=== PATIENT | female | born 1990 ===

== ENCOUNTER 2017-04-29 19:14 | Inpatient (IN) | payer MEDICAID ==
[2017-04-29 19:48] VITALS: BMI 37.9
[2017-04-29] MEDS: Lactated Ringer's 1,000 ML IV SCH (20:00)
--- NOTE | 2017-04-29 20:07 | OBADHP ---
Datetime: 04/29/2017 19:49 Admit Comment, IP Provider: Patient is a 26 year old at 40w5d RENAN 04/24/17 by LMP presents to L +D for scheduled induction of labor due to postdates. Patient is doing well, offers no complaints at this time. Endorses +FM, denies VB, LOF, CTX. Goes to [facility] for care. Last visit was yesterday. 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 Admit to unit 2. CEFM and TOCO 3. Admission labs - CBC, CMP, T+S, UA 4. LR @ 125cc/hr 5. Cervidil for cervical ripening 6. GBS negative - no abx needed at this time 7. Anesthesia for pain control prn 8. Plan d/w attending Chelsea Castanon DO PGY-1 agree with above Jabier whaley MD Pelvic Type - PN: Adequate Extremities - PN: Normal Abdomen - PN: Normal Back - PN: Normal Breast - PN: Normal Lungs - PN: Normal Heart - PN: Normal Thyroid - PN: Normal Neurologic - PN: Normal HEENT - PN: Normal General - PN: Normal Comments, ACOG Physical Exam: VS: BP 137/83 HR 112 Gen: AAOx3 Abd: Soft, gravid Ext: No clubbing, cyanosis, edema SVE: EFM: 140, TOCO: q3-4min Last US 04/17/17: Single IUP, cephalic, posterior placenta, CLIFFORD 9.9cm, EFW 7lbs 8oz IP Hx Assessment: The History has been Reviewed and is Current Vital Signs Provider: Reviewed; Within Normal Limits IP Chief Complaint: Scheduled induction of labor Genitourinary Exam: Normal DTRs - PN: Normal IP Adm Impression: Term, intrauterine IP Admit Plan: Admit to unit
[2017-04-29 20:52] LABS: BASO % 0.1 % (0.0-2.0); EOS # 0.1 K/uL (0.0-0.7); EOS % 0.4 % (0.0-4.0); HEMATOCRIT 41.9 % (34.0-47.0); LYMPH # 2.7 K/uL (1.0-4.3); LYMPH % 17.5 % (20.0-40.0); MEAN CELL VOLUME 88.2 fL (81.0-99.0); MEAN CORPUSCULAR HEMOGLOBIN 29.1 pg (27.0-31.0); MEAN PLATELET VOLUME 10.4 fL (7.2-11.7); MONO # 0.8 K/uL (0.0-0.8); MONO % 5.1 % (0.0-10.0); RED CELL DISTRIBUTION WIDTH 15.7 % (11.5-14.5); WHITE BLOOD COUNT 15.2 K/uL (4.8-10.8)
[2017-04-29 21:04] LABS: ALKALINE PHOSPHATASE 134 U/L (38-126); ALT/SGPT 30 U/L (9-52); AST/SGOT 14 U/L (14-36); BILIRUBIN,TOTAL 0.5 mg/dL (0.2-1.3); BLOOD UREA NITROGEN 10 mg/dL (7-17); CALCIUM 8.6 mg/dl (8.6-10.4); CARBON DIOXIDE 17 mmol/L (22-30); CHLORIDE 104 mmol/L (98-107); GFR AFRICAN-AMERICAN > 60; GLUCOSE,RANDOM 77 mg/dL (65-105); POTASSIUM 3.5 mmol/L (3.6-5.2); SODIUM 133 mmol/L (132-148); TOTAL PROTEIN 7.3 g/dL (6.3-8.3)
[2017-04-29 21:05] LABS: ALB/GLOB RATIO 0.9 (1.0-2.1); RBC URINE 24 /hpf (0-3); URINE BILIRUBIN NEGATIVE (NEGATIVE); URINE BLOOD 2+ (NEGATIVE); URINE COLOR Yellow (YELLOW); URINE GLUCOSE (UA) NORMAL (Normal); URINE KETONE NEGATIVE (NEGATIVE); URINE LEUKOCYTE ESTERASE 1+ Leu/uL (Negative); URINE PROTEIN NEGATIVE (NEGATIVE); URINE UROBILINOGEN NORMAL mg/dL (0.2-1.0); WBC URINE 16 /hpf (0-5)
[2017-04-29 21:13] LABS: URINE BACTERIA OCC (<OCC)
[2017-04-30] MEDS: Lactated Ringer's 1,000 ML IV SCH (03:30)
[2017-04-30] MEDS ORDERED: Bupivacaine 0.125%/FentaNYL 200 ML EPI ONE (08:16)
[2017-04-30] MEDS ORDERED: Oxytocin 30 UNIT 30 UNITS/500 ML BAG IV PRN (09:48)
[2017-04-30] MEDS ORDERED: Oxytocin 30 UNIT 30 UNITS/500 ML BAG IV ONE (09:49)
--- NOTE | 2017-04-30 09:50 | OBPN ---
Datetime: 04/30/2017 09:43 IP Progress Impression: Normal progression of labor IP Procedures: Sterile Vag Exam IP Progress Plan: Continue present management; Augmentation; Anticipate Vaginal Delivery Membranes, Provider: Intact Contraction Comments Provider: 2-5 FHR - Baseline A Provider: 135 Gestation - Est Wks by US: 40w 6d Presentation-Admit: Vertex IP Progress Note Comment: Patient received in LDR#4, S/P epidural; no pain of contractions. (+) AFM Cervical exam: as above. FHR noted for occasional variable decelerations with early decelerations. (+) accelerations with scalp stimulation. Assessment: 26 y.o. P0, 40w 6d, in active labor. Category 1 tracing with scalp stimulation. GBS negative. Plan: 1) Pitocin 2) Anticiate vaginal delivery NICHD Accel Fetus A IP Provider: 15X15 NICHD Variability Prov Fetus A: Moderate 6-25bpm Dilatation, Provider: 6 Effacement, Provider: 90 Station, Provider: -3 NICHD Decel Fetus A IP Provider: Early; Variable Datetime: 04/29/2017 19:49 Vital Signs Provider: Reviewed; Within Normal Limits
[2017-04-30] MEDS ORDERED: Sodium Chloride 0.9% 500 ML IV ONE (14:18)
[2017-04-30] MEDS ORDERED: cefOXitin IV 2 gm in Dextrose 2 GM/50 ML BAG IVPB ONE ×2 (16:22→16:23)
[2017-04-30] MEDS ORDERED: Sodium Citrate/Citric Acid 15 ml Sol PO ONE (16:22)
[2017-04-30] MEDS ORDERED: Oxytocin 10 Units/ml Inj ONE (16:29)
[2017-04-30] MEDS ORDERED: Oxytocin 20 units in LR 2,000 ML IV ONE (16:32)
[2017-04-30] MEDS ORDERED: Lactated Ringer's 1,000 ML IV ONE (16:36)
--- NOTE | 2017-04-30 17:00 | OBPN ---
Datetime: 04/30/2017 16:58 IP Progress Impression: Arrest of dilatation/descent IP Progress Plan: Deliver- Section FHR - Baseline A Provider: 150 Gestation - Est Wks by US: 40w 6d Presentation-Admit: Vertex NICHD Accel Fetus A IP Provider: 15X15 FHR Category Provider Fetus A: Category I NICHD Variability Prov Fetus A: Moderate 6-25bpm NICHD Decel Fetus A IP Provider: Early Datetime: 04/30/2017 15:52 Membranes, Provider: Intact Contraction Comments Provider: 1-2 duncan IP Progress Note Comment: Notified by R.N: probable SROM at 1300 Patient has been pushing with the coaching of her labor nurse. Assessment: 26 y.o. P0, at end of Stage 1 of labor. After cervical exam, deceleration noted to 110 bpm x 3 minutes. FHR responded to right lateral position, oxygen by mask. IV bolus of normal saline infusing - this secondary to low urine output. FHR recovered to 130 bpm; no Category 1 saul ng with occasional early decelerations. Clinically stable. Plan: 1) Observe 2) Anticpate resuming pushing in 30 to 60 minutes. Dilatation, Provider: 10 Effacement, Provider: 100 Station, Provider: 1
[2017-04-30] MEDS ORDERED: Morphine 1 mg/ml preservative-free Inj(Duramorph) ONE (17:03)
[2017-04-30] MEDS ORDERED: Ketamine 50 mg/ml Inj (10 ml) ONE (17:57)
[2017-04-30] MEDS ORDERED: Midazolam 2 MG/2 ML VIAL ONE (17:57)
[2017-04-30] MEDS ORDERED: Naloxone 0.4 mg/ml Inj (Adult) IVP PRN (19:25)
[2017-04-30] MEDS ORDERED: DiphenhydrAMINE 50 mg/ml Inj IVP PRN (19:25)
[2017-04-30] MEDS ORDERED: Oxycodone/Acetaminophen 5/325 mg Tab PO PRN (21:53)
--- NOTE | 2017-04-30 21:54 | OBDS ---
DELIVERY PERSONNEL Delivery Doctor: Ramon Grey MD Scrub Nurse: Neela Mcgarry Global Ceo: Silvia Hudson RN Anesthesiologist: Ramon Arnold MD Resident: Mariusz Castanon MATERNAL INFORMATION Delivery Anesthesia: Epidural; Spinal Medications in Delivery: pitocin 20mg to pitocin iv bag Estimated Blood Loss (ml): 800 Placenta Cultured: No Maternal Complications: None Other Maternal Complications: n/a RN Comments: see flow sheet Provider Comments: Primary LTCS with delivery of live male nfant, direct OP position, weight 7lb 4oz , 's 9/9; thick meconium liquor. Cord ph 7.14. There was a 5 cm extension on the right side, i nferior aspect of the lower uterine segment. 3 vessel umbilical cord; grossly normal placenta. Routine closure of uterus, with re-approximation of all tissues. Hemostasis was assured throughout the procedure. Skin was reapproximated with surgical clips Patient tolerated procedure well; back to R#4 in stable. had been transferred to [facility] nurse - also in stable condition. LABOR SUMMARY EDC: 04/24/2017 00:00 No. Babies in Womb: 1 Attempted: No Labor Anesthesia: Epidural LABOR INFORMATION Reason for Induction: Postterm Onset of Labor: 04/30/2017 07:53 Complete Dilatation: 04/30/2017 14:00 Cervical Ripening Agents: Cervidil Oxytocin: Augmentation Group B Beta Strep: Negative (Annotations: 03/20/2017) Antibiotics # of Doses: 1 Antibiotics Time of Last Dose: 1630 Steroids Given: None Reason Steroids Not Administered: Not Applicable MEMBRANES Membranes Rupture Method: Spontaneous Rupture of Membranes: 04/30/2017 13:00 Length of Rupture (hrs): 4.80 Amniotic Fluid Color: Clear Amniotic Fluid Amount: Small Amniotic Fluid Odor: None STAGES OF LABOR Stage 1 hrs: 6 Stage 1 min: 7 Stage 2 hrs: 3 Stage 2 min: 48 Stage 3 hrs: 0 Stage 3 min: 1 Total Time in Labor hrs: 9 Total Time in Labor min: 56 CSECTION DELIVERY Primary Indication: Arrest of Descent CSection Urgency: Non Elective CSection Incidence: Primary Labor: Labor Elective: Nonelective CSection Incision: Lower Uterine Transverse Uterine Closure: Double-layer closure BABY A INFORMATION Delivery Date/Time: 04/30/2017 17:48 Method of Delivery: Born in Route : No : N/A Forceps: N/A Vacuum Extraction: N/A Shoulder Dystocia : No SHOULDER DYSTOCIA BABY A Infant Delivery Date/Time: 04/30/2017 17:48 PRESENTATION/POSITION BABY A Presentation: Cephalic Cephalic Presentation: Vertex Vertex Position: direct op Breech Presentation: N/A PLACENTA INFORMATION BABY A Placenta Delivery Time : 04/30/2017 17:49 Placenta Method of Delivery: Manual Removal Placenta Status: Delivered SCORES BABY A Heart Rate 1 min: >100 bpm Resp Effort 1 min: Good Cry Reflex Irritability 1 min: Cough or Sneeze or Pulls Away Muscle Tone 1 min: Active Motion Color 1 min: Body Carmen, Extremities Blue Resuscitation Effort 1 min: Tactile Stimulation SCORE 1 MIN: 9 Heart Rate 5 min: >100 bpm Resp Effort 5 min: Good Cry Reflex Irritability 5 min: Cough or Sneeze or Pulls Away Muscle Tone 5 min: Active Motion Color 5 min: Body Carmen, Extremities Blue Resuscitation Effort 5 min: N/A SCORE 5 MIN: 9 INFORMATION BABY A Gestational Age at Delivery: 40.6 Gestational Status: Post-term Outcome : Liveborn Condition : Fair Infant Sex: Male IDENTIFICATION/MEDS BABY A ID Band Number: [id number] ID Band Location: Left Leg; Left Arm Sensor Applied: Yes Sensor Number: [id number] Sensor Location : Cord Clamp Vitamin K Given : Aquamephyton 1 mg IM; Right Thigh Erythromycin Given: Given Both Eyes WEIGHT/LENGTH BABY A Birthweight (gms): 3230 Weight (lb): 7 Weight (oz): 2 Infant Length Inches: 21.00 Length cms: 53.3 CORD INFORMATION BABY A No. Cord Vessels: 3 Nuchal Cord : N/A Nuchal Cord Other: n/a True Knot: n/a Infant Cord pH Baby Arterial: 7.14 Cord Blood Taken: Yes Suction: Mouth; Nose ASSESSMENT BABY A Complications: Meconium Physical Findings at Delivery: Caput Succedaneum Infant Respirations: Appears Normal Supervisor Fur Dressing/ALS Called : No Infant Care By: johnna carpenter RN/ Dr. nicholas Transferred To: Remains with Mother
--- NOTE | 2017-04-30 22:05 | PCM.SURG1 ---
Surgeon's Initial Post Op Note - Surgeon's Notes Surgeon: Sarahi Grey MD Customs And Immigration Officer: John Lucio MD; 2nd Assist: Chelsea Castanon DO, PGY-1 Type of Anesthesia: Spinal Anesthesia Administered By: Primitivo Arnold MD Pre-Operative Diagnosis: 40 weeks 5 days gestation. Failed IOL - arrest of descent. Operative Findings: Live male infant, direct OP position, Weight 7lb 4oz; Apgars ' 9/9. Thick meconium liquor. Cord pH 7.14; base excess -12. Approx 5cm extension of the inferior aspect of the uterine incision on the right. Normal uterus; normal fallopian tubes and ovaries, bilaterally. Post-Operative Diagnosis: Same Operation Performed: Transverse lower uterine segment section Specimen/Specimens Removed: None Estimated Blood Loss: EBL {In ML}: 800 (U.O. 300 mL) Blood Products Given: N/A Drains Used: No Drains Post-Op Condition: Good Date of Surgery/Procedure: 04/30/17 Time of Surgery/Procedure: 19:05
[2017-04-30] MEDS ORDERED: cefOXitin IV 2 gm in Dextrose 2 GM/50 ML BAG IVPB SCH (22:15)
--- NOTE | 2017-05-01 04:33 | OP ---
PROCEDURE DATE: 04/30/2017 SURGEON: Sarahi Grey MD OPERATIONS SPECIALISTS: John Lucio MD SECOND VENDING MACHINE TECHNICIAN: Chelsea Castanon DO, PGY1 ANESTHESIOLOGIST: Primitivo Arnold MD TYPE OF ANESTHESIA: Spinal. PREOPERATIVE DIAGNOSIS: 40 weeks 5 days' gestation, failed induction of labor with descent. POSTOPERATIVE DIAGNOSIS: 40 weeks 5 days gestation, failed induction of labor with descent. OPERATIVE FINDINGS: Live male infant with direct occiput posterior position, weight 7 pounds 4 ounces, Apgars of 9 and 9 at one and five minutes respectively. Thick meconium liquor was noted. Cord pH was 7.14 with a base excess of -12. There was an approximate 5 cm extension of the inferior aspect of the uterine segment on the right side. Normal uterus and normal fallopian tubes and ovaries bilaterally. OPERATION PERFORMED: Transverse lower uterine segment cesarian section. SPECIMENS: None. ESTIMATED BLOOD LOSS: 800 mL. URINE OUTPUT: 300 mL. INTRAVENOUS FLUIDS: *------* BLOOD PRODUCTS GIVEN: None. COMPLICATIONS: None. DESCRIPTION OF PROCEDURE: The patient was taken to the operating room after having obtained informed consent for the anticipated procedure. This included the discussion of possible risks and complications including but not limited to infection requiring continued antibiotics, hemorrhage requiring blood transfusion, repair of any damage to internal organs and possible hysterectomy. The patient offered no questions and consents were signed, dated, witnessed and placed in the chart. The patient had had a Atkins indwelling catheter inserted after receiving epidural anesthesia, and the abdomen was subsequently prepped. The patient was transferred to the main operating room. In the operating room, she was placed in the operating room table in a sitting position. Spinal anesthesia was administered without incident. The patient was immediately re-positioned to supine position, and the abdomen was prepped and subsequently draped in the usual sterile fashion. After assuring an adequate level of anesthesia, using a scalpel, a Pfannenstiel incision was made on the skin. The incision was carried down through the subcutaneous tissue using the Bovie electrocautery. The fascia was identified. It was nicked in the midline, and the incision was extended bilaterally also using the Bovie electrocautery. The fascia was dissected off the rectus muscle, and the rectus muscle was in the midline using two Angie clamps. The abdominal cavity was entered via sharp dissection. The vesicouterine reflection was identified and a bladder flap was created. A transverse incision was made on the lower uterine segment. Immediately upon entering the endometrial cavity, thick meconium liquor was noted. Atraumatic delivery of the infant then ensued without difficulty. Once on the operative field, the 's mouth and nose were bulb suctioned and the umbilical cord was doubly clamped and cut. The was handed off the operative field to the brake repairer railroad in attendance. A segment of the cord was obtained for cord pH analysis, results as above. The placenta was then delivered manually. It was grossly intact with three vessels present in the cord. The uterus was exteriorized for closure. It was noted to be somewhat boggy, and an additional 20 units for a total of 40 units of Pitocin was added. Uterus became firm. Closure of the uterine segment then ensued in two layers using 0 Vicryl. The first layer in a running interlocking fashion and the second layer was in a vertical imbricating fashion. The 5-cm extension on the right was also repaired using 0 Vicryl in two layers. The first layer was in a running interlocking fashion, and the second layer was in a vertical imbricating manner. Additional sutures were placed using 2-0 Monocryl in a [id number] stitch to assure hemostasis along the uterus. Attention was then directed to the posterior aspect of the uterus. Copious irrigation was performed. Findings as above. The uterine incision was then inspected again for hemostasis and Surgicel was placed along the uterine incision. The bladder flap was reapproximated using 2-0 chromic in a running fashion. The uterus was returned to the abdominal cavity and the paracolic gutters were cleared of all debris. Adequate hemostasis was assured. The parietal peritoneum was reapproximated in the midline using 2-0 chromic in a running fashion. The rectus muscles were reapproximated in the midline using 2-0 chromic in a running fashion. The fascia was reapproximated using 0-Vicryl in a running fashion in two halves. The subcutaneous tissue was reapproximated using 0 plain catgut in a running fashion, and the skin was reapproximated using surgical clips. Dressing was applied to the incision, and the patient as re-positioned in a frog-leg manner. Uterine exploration was performed and the uterus was evacuated of all clots and debris. A pressure dressing was then applied. The patient was subsequently transferred back to [facility] in stable condition. The had been transferred to [facility] in stable condition. Dr. Lucio was present throughout the entire procedure from beginning to end. His expertise was necessary for: 1. Adequate visualization of the field at all times. 2. The safe and atraumatic delivery of the infant as described above. 3. Assuring adequate hemostasis throughout the procedure. Sarahi MD Que
[2017-05-01 08:40] LABS: HEMATOCRIT 35.9 % (34.0-47.0); MEAN CELL VOLUME 88.8 fL (81.0-99.0); MEAN CORPUSCULAR HGB CONC 33.8 g/dL (33.0-37.0); RED CELL DISTRIBUTION WIDTH 15.6 % (11.5-14.5); WHITE BLOOD COUNT 15.6 K/uL (4.8-10.8)
[2017-05-01] MEDS: Lactated Ringer's 1,000 ML IV SCH (08:42)
[2017-05-01] MEDS: Prenatal Multivit/Folic Acid/Iron Tab PO SCH (09:41)
[2017-05-01] MEDS: Simethicone 80 mg Chewtab PO SCH ×4 (09:41→22:37)
--- NOTE | 2017-05-01 11:25 | OBPPN ---
Datetime: 05/01/2017 11:20 PP Pain Prov: Within normal limits PP Nausea Prov: Denies PP Flatus Prov: No PP Abdomen/Uterus Prov: Normal PP Lochia Prov: Normal PP Extremities Prov: Normal PP Comments Phys Exam Prov: fudus bekow umblicus ext mild edema,no calf ten PP Impression Prov: Normal progression PP Plan Prov: Continue present management PP Progress Note Prov: pt wa seen at bed chito, pain under control,no n/v, tolerating deit,waiting to void ,min lochia, flatus + pod#1 s/p c/s cbc rg deit cont post op care cont pain management Vital Signs Provider PP: Reviewed; Within Normal Limits
[2017-05-02 08:15] LABS: BASO % 0.1 % (0.0-2.0); EOS % 0.3 % (0.0-4.0); HEMATOCRIT 33.5 % (34.0-47.0); LYMPH # 1.7 K/uL (1.0-4.3); MEAN CELL VOLUME 88.4 fL (81.0-99.0); MEAN CORPUSCULAR HEMOGLOBIN 29.8 pg (27.0-31.0); MEAN CORPUSCULAR HGB CONC 33.7 g/dL (33.0-37.0); MEAN PLATELET VOLUME 9.7 fL (7.2-11.7); MONO # 0.5 K/uL (0.0-0.8); MONO % 3.3 % (0.0-10.0); RED CELL DISTRIBUTION WIDTH 15.3 % (11.5-14.5); WHITE BLOOD COUNT 15.1 K/uL (4.8-10.8)
--- NOTE | 2017-05-02 08:53 | OBPPN ---
Datetime: 05/02/2017 07:18 PP Pain Prov: Within normal limits PP Nausea Prov: Denies PP Flatus Prov: Yes PP BM Prov: Yes PP Abdomen/Uterus Prov: Normal PP Lochia Prov: Normal PP Extremities Prov: Normal PP Comments Phys Exam Prov: Fundus firm below umbilicus Incision c/d/i with savanna PP Impression Prov: Normal progression PP Plan Prov: Continue present management PP Progress Note Prov: Patient seen and examined at bedside. Per nursing no acute events overnight. Patient is doing well, having pain at incision site. Lochia is mild. Ambulating and tolerating diet. Passing flatus and BM. Urinating without difficulty. Breast and bottle feeding. Denies headaches, diz ziness, cp, palpiaions, sob, urinary symptoms. VS: 121/72 101 98.9 Gen: AAOx3 CV: RRR Lungs: CTA B/L Abd: Soft, appropriately tender, fundus firm below umbilicus, incision c/d/i with savanna, +abd bi nder Ext: Mild edema, no calf tenderness Labs: 15.2>13.8/41.9<207 15.6>12.1/35.9<159 AB positive Rubella immune A/P: 26 year old at 40w6d s/p PLTCD 2/2 failure to descent POD#2 1. stable, afebrile 2. Pain control - percocet and motrin prn 3. Encourage ambulation and hydration; ISS use 4. Encourage breast feeding 5. Continue routine care 6. Male - declined circ 7. Anticipate d/c home tomorrow 8. Plan d/w attending Chelsea Castanon DO PGY-1 dr nam agrees with above Vital Signs Provider PP: Reviewed
[2017-05-02] MEDS: Simethicone 80 mg Chewtab PO SCH ×4 (09:08→21:18)
[2017-05-02] MEDS: Prenatal Multivit/Folic Acid/Iron Tab PO SCH (09:09)
[2017-05-02] MEDS: Oxycodone/Acetaminophen 5/325 mg Tab PO PRN (16:55)
[2017-05-03 07:47] VITALS: O2SAT 100
[2017-05-03] MEDS: Oxycodone/Acetaminophen 5/325 mg Tab PO PRN (08:09)
[2017-05-03] MEDS: Simethicone 80 mg Chewtab PO SCH (09:43)
[2017-05-03] MEDS: Prenatal Multivit/Folic Acid/Iron Tab PO SCH (09:43)
[2017-05-03] MEDS ORDERED: Influenza Vaccine 60 mcg/0.5 mL SYR (4YR UP) IM ONE (10:00)
[2017-05-03 16:38] VITALS: BP 136/86; PULSE 113; RESP 18; TEMP 97
--- NOTE | 2017-05-03 19:54 | OBPPN ---
Datetime: 05/03/2017 08:55 PP Pain Prov: Within normal limits PP Nausea Prov: Denies PP Flatus Prov: Yes PP Impression Prov: Normal progression PP Plan Prov: Continue present management; Discharge PP Progress Note Prov: Patient seen and examined at bedside. Per nursing no acute events overnight. Patient is doing well, pain is controlled. Lochia mild. Patient is ambulating and tolerating diet. Ur inating without difficulty. Passing flatus and BM. Breast and bottle feeding. Denies headaches, dizzi ness, cp, palpitations, sob, urinary symptoms. VS: 123/74 122 98.5 Gen: AAOx3 CV: Tachycardic, regular rhythm Lungs: CTA B/L Abd: Soft, fundus firm below umbilicus, incision c/d/i with savanna Ext: Mild edema; No clubbing, cyanosis, calf tenderness Labs: 15.2>13.8/41.9<207 15.6>12.1/35.9<159 AB positive Rubella immune A/P: 26 year old at 40w6d s/p PLTCD 2/2 failure of descent POD#3 1. Stable, afebrile 2. Pain control - percocet and motrin prn 3. Encourage ambulation and hydration 4. Encourage breast feeding 5. Continue routine care 6. Anticipate d/c home today - pelvic rest x 6 weeks, f/u with clinic in 1 week for staple removal 7. Plan d/w attending Chelsea Castanon DO PGY-1 Pt seen and examined with resident and agrees with the above. Vital Signs Provider PP: Reviewed
--- NOTE | 2017-05-03 19:54 | OBDCSUM ---
Datetime: 05/03/2017 08:30 Discharged to, Provider: Home Follow up at, Provider: [facility] Disch Instr Activity: Normal activity; May Shower Disch Instr Diet: Regular Discharge Diet restrict Prov: none Discharge Instructions, Provider: Routine instructions given Discharge Diagnosis, Provider: Term Delivered Discharge Time: 05/03/2017 10:00 Follow up in weeks, Provider: one week fri05/09/17 Disch Referrals: None Contraception discussed, Prov: Yes Disch Activity Restrictions: No exercising; No lifting; No sexual activity; Nothing in vagina - Inte rcourse, tampons, douche Discharge Comment, Provider: s/p Primary Section, Clinically Stable Discharge Diagnosis Prov Other: s/p Primary Section, Clinically Stable
== END 2017-05-03 12:30 | disposition home or self-care (01) | DRG 371 ==
LOC: C.EROB 19:14 → C.4D 19:51 → C.4M 04-30 22:00
PROVIDERS: ADMIT Obstetrics & Gynecology; ATTEND Obstetrics & Gynecology
PROC: 3E0P7VZ Introduction of Hormone into Female Reproductive, Via Natural or Artificial Opening (ICD-10-PCS; 2017-04-29)
PROC: 10D00Z1 Extraction of Products of Conception, Low, Open Approach (ICD-10-PCS; principal; 2017-04-30)
DX: O48.0 Post-term pregnancy (principal); O61.9 Failed induction of labor, unspecified; O64.0XX0 Obstructed labor due to incomplete rotation of fetal head, not applicable or unspecified; O62.1 Secondary uterine inertia; O76 Abnormality in fetal heart rate and rhythm complicating labor and delivery; Z3A.40 40 weeks gestation of pregnancy; Z37.0 Single live birth

== ENCOUNTER 2018-04-22 07:25 | Inpatient (IN) | payer MEDICAID, OTHER ==
[2018-04-22] MEDS ORDERED: Lactated Ringer's 1,000 ML IV ONE (07:52)
[2018-04-22] MEDS ORDERED: Sodium Citrate/Citric Acid 15 ml Sol PO ONE (07:52)
[2018-04-22] MEDS ORDERED: ceFAZolin 2 GM in Sodium Chloride 0.9% 100 ML IVPB ONE (07:52)
[2018-04-22 09:23] LABS: BASO % 0.3 % (0.0-2.0); EOS # 0.1 K/uL (0.0-0.7); EOS % 0.7 % (0.0-4.0); HEMOGLOBIN 12.6 g/dL (11.0-16.0); LYMPH # 2.7 K/uL (1.0-4.3); LYMPH % 28.2 % (20.0-40.0); MEAN CELL VOLUME 87.4 fL (81.0-99.0); MEAN CORPUSCULAR HEMOGLOBIN 29.5 pg (27.0-31.0); MEAN CORPUSCULAR HGB CONC 33.7 g/dL (33.0-37.0); MONO # 0.4 K/uL (0.0-0.8); MONO % 4.5 % (0.0-10.0); NEUT # 6.4 K/uL (1.8-7.0); NEUT % 66.3 % (50.0-75.0); RBC 4.27 Mil/uL (3.80-5.20); RED CELL DISTRIBUTION WIDTH 15.3 % (11.5-14.5); WHITE BLOOD COUNT 9.6 K/uL (4.8-10.8)
[2018-04-22 09:59] LABS: SQUAMOUS EPITHIAL 67 /hpf (0-5); URINE BACTERIA MANY (<OCC); URINE BILIRUBIN NEGATIVE (NEGATIVE); URINE BLOOD NEGATIVE (NEGATIVE); URINE CLARITY Hazy (Clear); URINE COLOR Yellow (YELLOW); URINE GLUCOSE (UA) NORMAL (Normal); URINE LEUKOCYTE ESTERASE 2+ Leu/uL (Negative); URINE PROTEIN NEGATIVE (NEGATIVE); URINE UROBILINOGEN NORMAL mg/dL (0.2-1.0)
[2018-04-22] MEDS ORDERED: Oxytocin 20 units in LR 2,000 ML IV ONE (10:59)
[2018-04-22] MEDS ORDERED: Sodium Citrate/Citric Acid 15 ml Sol ONE ×2 (11:35→12:00)
[2018-04-22] MEDS ORDERED: ceFAZolin 1 gm FROZEN Premix 0 GM/0 ML ML IVPB ONE (11:59)
[2018-04-22] MEDS: Lactated Ringer's 1,000 ML IV SCH ×2 (12:58→19:13)
[2018-04-22] MEDS ORDERED: ePHEDrine 50 mg/ml Inj ONE (13:52)
[2018-04-22] MEDS ORDERED: Oxytocin 10 Units/ml Inj ONE (14:15)
[2018-04-22] MEDS ORDERED: OXYTOCIN IV ONE (15:33)
[2018-04-22] MEDS ORDERED: Oxycodone/Acetaminophen 5/325 mg Tab PO PRN ×2 (15:33→15:39)
[2018-04-22] MEDS: Simethicone 80 mg Chewtab PO SCH ×2 (19:08→22:30)
--- NOTE | 2018-04-23 06:10 | OP ---
PROCEDURE DATE: 04/22/2018 PREOPERATIVE DIAGNOSIS: A 27-year-old 2, para 1 at 39 weeks with repeat scheduled section. POSTOPERATIVE DIAGNOSIS: A 27-year-old 2, para 1 at 39 weeks with repeat scheduled section. SURGEON: Terence Hernandez MD STRAIGHTENING MACHINE OPERATOR: John Lucio MD. ANESTHESIA: Spinal anesthesia. ANESTHESIOLOGIST: Dr. Reid. COMPLICATION: None. PROCEDURE PERFORMED: Repeat section, bilateral salpingectomy. ESTIMATED BLOOD LOSS: 900 mL. DESCRIPTION OF PROCEDURE: After informed consent was obtained, the patient was brought to the operating room, placed on the table, where spinal anesthesia was given. Once the anesthesia was given, the patient was prepped and draped in normal sterile fashion. At the site of the previous skin incision, an incision was made with a knife, the subcutaneous cut with a Bovie. The fascia was excised on both sides using curved Kaufman scissors. The fascia was from the site of the umbilicus and then at the site of the pubic bone. Rectus muscle was lifted up with two Allis scissors and was cut with a knife. There was adhesion of the omentum which was taken out with ____ Bladder blade was placed. Bladder flap was created. Lower uterine segment incision was made with a knife, it was extended on both sides using curved Kaufman scissors. Baby was delivered in ROT position. The head was The baby was handed to the awaiting intensive care unit registered nurse. Placenta delivered manually and sent to Pathology. The uterus was exteriorized and cleared of all clots and debris. The uterine incision was closed using #1 Vicryl in running interlocking fashion. Second layer was closed with the same stitch. Bilateral tubal ligation was done using modified Audra technique. of all the clots and debris, uterus was returned back to the abdominal cavity. After that, gutters were cleared of all the clots and debris. The peritoneum was closed using 2-0 Vicryl in running interlocking fashion. The muscle was closed using 2-0 Vicryl in running interlocking fashion. The fascia was closed using #1 Vicryl in running interlocking fashion. Skin was closed using savanna. The patient tolerated the procedure well. Lap, sponge, and instrument count were correct x2. Terence Hernandez MD [facility] # [id number]
[2018-04-23 08:23] LABS: HEMOGLOBIN 12.8 g/dL (11.0-16.0); MEAN CELL VOLUME 86.8 fL (81.0-99.0); MEAN CORPUSCULAR HEMOGLOBIN 29.6 pg (27.0-31.0); MEAN CORPUSCULAR HGB CONC 34.1 g/dL (33.0-37.0); MEAN PLATELET VOLUME 10.2 fL (7.2-11.7); RBC 4.33 Mil/uL (3.80-5.20); RED CELL DISTRIBUTION WIDTH 15.2 % (11.5-14.5); WHITE BLOOD COUNT 12.9 K/uL (4.8-10.8)
[2018-04-23] MEDS: Simethicone 80 mg Chewtab PO SCH ×4 (09:44→22:45)
[2018-04-23] MEDS: Prenatal Multivit/Folic Acid/Iron Tab PO SCH (09:44)
--- NOTE | 2018-04-23 10:09 | OBPPN ---
Datetime: 04/23/2018 09:26 PP Pain Prov: Within normal limits PP Nausea Prov: Denies PP Flatus Prov: Yes PP BM Prov: Yes PP Breasts Prov: Normal PP Heart Prov: Normal PP Lungs Prov: Normal PP Abdomen/Uterus Prov: Normal PP Lochia Prov: Normal PP Vulva/Perineum Prov: Normal PP CVA Tenderness Prov: Normal PP Extremities Prov: Normal PP C/S Incision Prov: Normal PP Progress Prov: Normal PP Impression Prov: Normal progression PP Plan Prov: Continue present management PP Progress Note Prov: 27 y o female now at 39.1 weeks s/p scheduled repeat C/s POD#1. Pt seen and examined at bedside. Denies any acute complaints. Reports pain well controlled. Able to t olerate liquid diet without nausea/vomiting. Admits to passing flatus, having bowel movement, voiding well without concerns. Observed at bedside without concerns. Denies headache, dizzines s, fever, chills, chest pain, sob, n/v/d/c, urinary complaints, or other symptoms. Exam: VS 106/65, HR 100, T 98.6 Gen: WDWN female, NAD HEENT: NCAT, PERRLA, EOMI Neck: supple, no JVD Heart: normal s1/s2, no m/r/g Lungs: CTA b/l, no wheezes rales or rhonchi Abd: soft, non-distended, mild tenderness to palpation at surgical site, normal bowel sounds x4 Exts: no c/c/e Neuro: AAOx3, no gross deficits Skin: surgical site c/d/i A/P: s/p scheduled repeat C/s POD#1. WBC 12.9, pt afebrile, continue to monitor Post-op H/H 12.8/37.6 Continue with pain management Encourage ambulation, and plenty of PO fluids D/c planning for POD#[address] Grey, attending physician. Tenzin Mcadams DO PGY-1 Attending Note: Patient seen and evaluated with a Resident. Sitting up in chair at this time; present. Yadira astfeeding. Amublating and voiding without difficulty. Denies N/V. (+) flatus (+) BM. I agree with t he above as documented with the additional clarification: S/P C/S # 2 with bilateral salpingectomy fo r permanent sterilization. I agree with the assessment and plan. IP PP Procedures: None Vital Signs Provider PP: Reviewed; Within Normal Limits
[2018-04-23] MEDS: guaiFENesin 200 mg/10 ml Syrup UD PO PRN (22:41)
[2018-04-24] MEDS: Simethicone 80 mg Chewtab PO SCH ×4 (09:45→23:22)
[2018-04-24] MEDS: Prenatal Multivit/Folic Acid/Iron Tab PO SCH (09:45)
--- NOTE | 2018-04-24 10:57 | OBPPN ---
Datetime: 04/24/2018 08:15 PP Pain Prov: Within normal limits PP Nausea Prov: Denies PP Flatus Prov: Yes PP BM Prov: Yes PP Heart Prov: Normal PP Lungs Prov: Normal PP Abdomen/Uterus Prov: Normal PP Lochia Prov: Normal PP Vulva/Perineum Prov: Not Done PP Extremities Prov: Normal PP C/S Incision Prov: Normal PP Comments Phys Exam Prov: Abd: soft, +bowel sounds, appropriately tender s/p , incision i s clean, dry and intact. Abdominal binder in place, fundus is firm and at the umbilicus. PP Impression Prov: Normal progression PP Plan Prov: Continue present management PP Progress Note Prov: Patient was seen and examined at bedside. Patient is doing well and has no ac [place] complaints. Patient's pain is well-controlled. Patient admits to very mild lochia. Patient is to lerating diet and liquid without any issues. Patient admits to voiding without difficulties, passing flatus, having a bowel movment. Patient denies fever, chills, nausea, vomiting, chest pain, palpitati ons, shortness of breath, dizziness, calf tenderness or headache. Patient is breast feeding. VS 105/65, HR: 110, T: 99.0, RR: 20 PE: Gen: NAD, well-appearing Heart: RRR, normal S1, S2 Lungs: CTA b/l, no wheezes rales or rhonchi Abd: soft, +bowel sounds, appropriately tender s/p , incision is clean, dry and intact. A bdominal binder in place, fundus is firm and at the umbilicus. Exts: No cyanosis, no clubbing and no edema Labs: 9.6>12.6/37.3<200, 12.9>12.8/37.6<180 AB+, Rubella immune A/P: Patient is a 27 year old s/p scheduled repeat C/s POD#2. 1. Afebrile 2. H/H is stable 3. Pain is well-controlled 4. Continue to encourage breast feeding 5. Continue to encourage ambulation and hydration 6. Plans for D/C on POD#[address] Will discuss plans [address] Dr[address] Chaparrita Simms, , PGY 2 patient seen and examined alongside residnet team patient is s/p repeat Cs, stable post op course, incision c/d/i, counseled onwound hygeine morning labs reviewed, will repeat to assess if any change in h/h countinue post care Vital Signs Provider PP: Reviewed
[2018-04-24] MEDS: guaiFENesin 200 mg/10 ml Syrup UD PO PRN (18:25)
[2018-04-25] MEDS ORDERED: Oxycodone/Acetaminophen 5/325 mg Tab PO PRN (09:01)
[2018-04-25 09:17] VITALS: BP 121/85; PULSE 94; RESP 18; O2SAT 100
--- NOTE | 2018-04-25 09:32 | OBDCSUM ---
Datetime: 04/25/2018 09:29 Discharged to, Provider: Home Disch Instr Activity: Normal activity Disch Instr Diet: Regular Discharge Instructions, Provider: Routine instructions given Discharge Time: 04/25/2018 09:29 Disch Referrals: None Contraception discussed, Prov: Yes Discharge Comment, Provider: PT DOING WELL. NO COMPLAINTS AT THIS TIME. DENIES PAIN, NAUSEA OR VOMITING VSS:AFEBRILE LABS: WNL A/P: S/P REPEAT C/S POD 3 1) VSS: AFEBRILE. 2) QING PO DIET. 3) PAIN CONTROLLED WITH PO PAIN MEDS. 4) D/C HOME. Signature: Stephanie BROWN
[2018-04-25] MEDS ORDERED: Influenza Vaccine 60 MCG/0.5 ML SYR (3 yr & up) IM ONE (10:00)
[2018-04-25] MEDS: Prenatal Multivit/Folic Acid/Iron Tab PO SCH (10:02)
[2018-04-25] MEDS: Simethicone 80 mg Chewtab PO SCH (10:02)
[2018-04-25 18:37] VITALS: TEMP 97.1
== END 2018-04-25 13:35 | disposition home or self-care (01) ==
LOC: C.EROB 07:25 → C.4D 07:42 → C.4M 18:25
PROVIDERS: ADMIT Obstetrics & Gynecology; ATTEND Obstetrics & Gynecology
PROC: 10D00Z1 Extraction of Products of Conception, Low, Open Approach (ICD-10-PCS; principal; 2018-04-22)
DX: O34.211 Maternal care for low transverse scar from previous cesarean delivery (principal); N85.8 Other specified noninflammatory disorders of uterus; Z3A.39 39 weeks gestation of pregnancy; Z37.0 Single live birth